=== PATIENT | female | born 1935 | race Caucasian/White ===

== ENCOUNTER 2018-01-11 14:47 | Inpatient (IN) | payer MEDICARE ==
[~2018-01-11] VITALS: Ht 160 cm; Wt 66.6 kg
[~2018-01-11 14:47] MED LIST: ACET-2521 PO; BRIN8DRO OD; CALC-1198 PO; CARV12.511 PO; ERGO500014 PO; FISH1CAP49 PO; FLUT1AER IH; GABA-531 PO; HYDR25TA PO; LATA2.5D2 OD; LISI-613 PO; MAGN250T10 PO; MELO-106 PO; MV-M1TAB46 PO; POLY15DR57 OP; PROBIOTIC BLEN1 EACH PO
[2018-01-11 15:08] LABS: BASOPHILS % (AUTO) 0.9 % (0.0-5.0); EOSINOPHILS % (AUTO) 3.7 % (0.0-8.0); HEMATOCRIT 33.4 % (36-48); LYMPHOCYTES % (AUTO) 15.4 % (21.0-51.0); MEAN CORPUSCULAR HEMOGLOBIN 29.8 pg (27.0-33.0); MEAN CORPUSCULAR HGB CONC 33.7 g/dL (32.0-36.0); MEAN CORPUSCULAR VOLUME 88.2 fL (79-99); MONOCYTES % (AUTO) 10.8 % (3.0-13.0); NEUTROPHILS % (AUTO) 69.2 % (40.0-77.0); PLATELET COUNT (AUTO) 332 K/uL (130-400); RED BLOOD CELL COUNT(AUTO) 3.78 MIL/uL (4.00-5.50); RED CELL DISTRIBUTION WIDTH 13.6 % (11.0-15.5); WHITE BLOOD COUNT (AUTO) 10.9 K/uL (4.8-10.8)
[2018-01-11] MEDS ORDERED: SODIUM CHLORIDE 0.9% 1000ML 1,000 ML IV ONE (15:12)
[2018-01-11 15:25] LABS: APPEARANCE,URINE CLOUDY (CLEAR); BILIRUBIN,URINE NEGATIVE (NEGATIVE); COLOR,URINE YELLOW (YELLOW); GLUCOSE, URINE (UA) NEGATIVE (NEGATIVE); KETONES,URINE NEGATIVE (NEGATIVE); LEUKOCYTE ESTERASE ,URINE LARGE (NEGATIVE); NITRATE,URINE NEGATIVE (NEGATIVE); OCCULT BLOOD,URINE MODERATE (NEGATIVE); PH,URINE 6.5 (5.0-8.0); PROTEIN,URINE 100 (NEGATIVE); UROBILINOGEN,URINE 0.2 mg/dL (0.2-1.0)
[2018-01-11 15:31] LABS: BACTERIA,URINE Few /HPF (None Seen); RENAL EPITHELIAL CELLS,URINE Rare /HPF (None Seen); TRANSITIONAL EPI CELLS,URINE Few /HPF (None Seen); WBC,URINE >100 /HPF (0-1)
[2018-01-11 15:33] LABS: CREATININE 3.5 mg/dL (0.5-1.5); POTASSIUM 4.7 mmol/L (3.5-5.1)
[2018-01-11 15:40] LABS: ALBUMIN 3.1 g/dL (3.5-5.0); BILIRUBIN,TOTAL 0.3 mg/dL (0.2-1.0)
[2018-01-11] MEDS ORDERED: CEFTRIAXONE SODIUM 1 GM ONE (17:39)
[2018-01-11] MEDS ORDERED: ACETAMINOPHEN 325 MG TAB PO PRN (18:30)
[2018-01-11] MEDS ORDERED: ONDANSETRON HCL 4 MG/2 ML VIAL IVP PRN (18:30)
[2018-01-11 18:40] VITALS: BP 160/92
[2018-01-11] MEDS ORDERED: LEVOFLOXACIN 750 MG/D5W 150 ML 150 ML IV SCH (19:00)
[2018-01-11] MEDS ORDERED: XALA2.5OS OD (19:48)
[2018-01-11] MEDS ORDERED: BRIN8DRO OP (19:48)
[2018-01-11] MEDS ORDERED: FLUT1AER IH (19:48)
[2018-01-11 20:00] VITALS: BP 151/77
[2018-01-11] MEDS: DEXTROSE 5 %-0.45 % NACL 1,000 ML IV SCH (20:35)
[2018-01-11] MEDS ORDERED: CARVEDILOL 6.25 MG TABLET PO ONE (23:52)
[2018-01-11] MEDS ORDERED: LISINOPRIL 20 MG TABLET ONE (23:52)
[2018-01-11] MEDS: ACETAMINOPHEN 325 MG TAB PO PRN (23:58)
[2018-01-12] VITALS (7 sets, daily range): BP systolic 114–175; BP diastolic 59–102
[2018-01-12] MEDS ORDERED: ARTIFICAL TEARS SOL 15 ML OP PRN (06:00)
[2018-01-12] MEDS ORDERED: BUDESONIDE 0.5 MG/2 ML INH IH ONE (07:01)
[2018-01-12] MEDS ORDERED: ALBUTEROL SULFATE 0.083% 2.5 MG/3 ML INH IH ONE (07:02)
[2018-01-12] MEDS: FISH OIL 1000 MG/CAP PO SCH ×3 (09:00→19:42)
[2018-01-12] MEDS: ACETAMINOPHEN EXTENDED RELEASE 650 MG TABLET PO SCH (09:00)
[2018-01-12] MEDS: SIMBRINZA OD SCH ×2 (09:00→19:49)
[2018-01-12] MEDS: [UNRECOGNIZED DRUG - OTHER] PO SCH (09:00)
[2018-01-12] MEDS: WOMENS PO SCH (09:00)
[2018-01-12] MEDS ORDERED: FLUTICASONE/VILANTEROL 1 EACH AER.POW.BA IH SCH (09:00)
[2018-01-12] MEDS: CALCIUM 500 + VITAMIN D 200 TABLET PO SCH (09:00)
[2018-01-12] MEDS: MAGNESIUM OXIDE 400 MG TABLET PO SCH (09:00)
[2018-01-12] MEDS: LACTOBACILLUS RHAMNOSUS GG 1 EACH CAP.SPRINK PO SCH (09:21)
[2018-01-12] MEDS: GABAPENTIN 300 MG CAPSULE PO SCH ×4 (09:21→19:42)
[2018-01-12] MEDS: HYDROCHLOROTHIAZIDE 25 MG TABLET PO SCH (09:22)
[2018-01-12] MEDS: CARVEDILOL 12.5 MG TABLET PO SCH ×2 (09:22→19:43)
[2018-01-12] MEDS: MELOXICAM 7.5 MG TABLET PO SCH ×2 (09:22→19:43)
[2018-01-12] MEDS: LISINOPRIL 20 MG TABLET PO SCH ×2 (09:23→19:43)
[2018-01-12] MEDS: ALBUTEROL SULFATE 0.083% 2.5 MG/3 ML INH IH SCH ×3 (11:08→23:26)
[2018-01-12] MEDS: DEXTROSE 5 %-0.45 % NACL 1,000 ML IV SCH (11:10)
[2018-01-12] MEDS ORDERED: IPRATROPIUM/ALBUTEROL SULFATE 3 ML SOLUTION IH PRN (17:30)
[2018-01-12] MEDS: CEFTRIAXONE SODIUM 1 GM IVP SCH (17:56)
[2018-01-12] MEDS: BUDESONIDE 0.5 MG/2 ML INH IH SCH (18:04)
[2018-01-12] MEDS ORDERED: LATANOPROST 2.5 ML DROPS OD SCH ×2 (21:00)
[2018-01-12] MEDS: ACETAMINOPHEN 325 MG TAB PO PRN (23:08)
[2018-01-13 04:00] VITALS: BP 120/78
[2018-01-13] MEDS: DEXTROSE 5 %-0.45 % NACL 1,000 ML IV SCH (04:46)
[2018-01-13] MEDS: ALBUTEROL SULFATE 0.083% 2.5 MG/3 ML INH IH SCH ×3 (06:27→18:48)
[2018-01-13] MEDS: BUDESONIDE 0.5 MG/2 ML INH IH SCH ×2 (06:27→18:53)
[2018-01-13 08:00] VITALS: BP 137/72
[2018-01-13] MEDS: GABAPENTIN 300 MG CAPSULE PO SCH ×2 (08:39→14:37)
[2018-01-13] MEDS: FISH OIL 1000 MG/CAP PO SCH ×2 (08:39→14:38)
[2018-01-13] MEDS: ACETAMINOPHEN EXTENDED RELEASE 650 MG TABLET PO SCH (08:39)
[2018-01-13] MEDS: LACTOBACILLUS RHAMNOSUS GG 1 EACH CAP.SPRINK PO SCH (08:39)
[2018-01-13] MEDS: MAGNESIUM OXIDE 400 MG TABLET PO SCH (08:40)
[2018-01-13] MEDS: MELOXICAM 7.5 MG TABLET PO SCH (08:40)
[2018-01-13] MEDS: CARVEDILOL 12.5 MG TABLET PO SCH (08:40)
[2018-01-13] MEDS: HYDROCHLOROTHIAZIDE 25 MG TABLET PO SCH (08:40)
[2018-01-13] MEDS: CALCIUM 500 + VITAMIN D 200 TABLET PO SCH (08:40)
[2018-01-13] MEDS: LISINOPRIL 20 MG TABLET PO SCH (08:40)
[2018-01-13] MEDS: WOMENS PO SCH (08:41)
[2018-01-13] MEDS: [UNRECOGNIZED DRUG - OTHER] PO SCH (08:41)
[2018-01-13] MEDS: SIMBRINZA OD SCH (08:41)
[2018-01-13 11:48] VITALS: BP 101/55
[2018-01-13 15:38] VITALS: BP 124/60
[2018-01-13] MEDS: CEFTRIAXONE SODIUM 1 GM IVP SCH (17:09)
[2018-01-13] MEDS ORDERED: CEFD300C3 PO ×2 (17:29→17:33)
[2018-01-14] MEDS ORDERED: LEVOFLOXACIN 500 MG TABLET PO SCH (09:00)
== END 2018-01-13 19:30 | disposition home or self-care (01) | DRG 683 ==
LOC: EDH 14:47 → EDHIP 16:50 → OBSVTOIN 16:50 → 3BH 18:04
PROVIDERS: ADMIT Internal Medicine; ATTEND Internal Medicine
DX: N17.9 Acute kidney failure, unspecified (principal); N39.0 Urinary tract infection, site not specified; E86.0 Dehydration; J44.9 Chronic obstructive pulmonary disease, unspecified; I12.9 Hypertensive chronic kidney disease with stage 1 through stage 4 chronic kidney disease, or unspecified chronic kidney disease; N18.9 Chronic kidney disease, unspecified; M19.90 Unspecified osteoarthritis, unspecified site; E78.5 Hyperlipidemia, unspecified; H54.62 Unqualified visual loss, left eye, normal vision right eye; Z85.41 Personal history of malignant neoplasm of cervix uteri; Z90.710 Acquired absence of both cervix and uterus
CPT/HCPCS: 36415; 74176; 80053; 81001; 83605; 85025; 87040; 87088; 87507; 93005; 94640; 94664; 99291; A4218; J0696; J1956; J7030; J7042